=== PATIENT | female | born 1975 | race African-American/Black ===

== ENCOUNTER 2018-02-14 19:10 | Emergency (ER) | payer MEDICAID ==
[~2018-02-14] VITALS: Ht 175.3 cm; Wt 108.9 kg
[~2018-02-14 19:10] MED LIST: ABILIFY10 MG ORAL; BACTRIM DS TAB1 EAC1 ORAL; CEPHALEXIN500 MG ORAL; DEPAKOTE ER500 MG PO; IBUPROFEN600 MG ORAL; NORCO 5-325 TA1 EACH PO; PROVERA10 MG PO; QUETIAPINE FUMA25 MG PO
[2018-02-14 19:20] VITALS: BP 122/66
[2018-02-14] MEDS ORDERED: METFORMIN HCL1000 M1 ORAL (19:26)
[2018-02-14] MEDS ORDERED: METOPROLOL SUCC25 MG ORAL (19:26)
[2018-02-14] MEDS ORDERED: Isovue-300 100ml vial INJ PRN (19:45)
[2018-02-14] MEDS ORDERED: Gastrograffin 30ml ORAL PRN (19:45)
--- NOTE | 2018-02-14 19:57 | Emergency Room Report ---
History of Present Illness General Chief Complaint: Chest Pain Source: Patient, Medical Record (Bakari Hameed MD) Present Illness HPI Patient is a 42-year-old female brought in by self after increased chest discomfort since this morning. The patient reports having multiple episodes of vomiting after eating at [facility]. She had prior reported prior history of gastric sleeve surgery approximately one year and 3 months ago. The patient states that she had been having increased chest discomfort which was not changed with respiration or ambulation. Patient ported having vomited 3 times. She denied any episodes of diarrhea. Patient states that she been having some discolored stool. She denies any fever. (Bakari Hameed MD) Allergies: Coded Allergies: PENICILLINS (Verified Allergy, 08/25/12) Patient History Past Medical History: see triage record Past Surgical History: other - gastric sleeve surgery Last Menstrual Period: 01/17/18 Now: No Reviewed Nursing Documentation: PMH: Agreed; PSxH: Agreed (Bakari Hameed MD) Nursing Documentation-PMH Past Medical History: No History, Except For Hx Cardiac Problems: No Hx Asthma: Yes Hx Cancer: No Hx Gastrointestinal Problems: No Hx Seizures: Yes (Bakari Hameed MD) Review of Systems All Other Systems: negative except mentioned in HPI (Bakari Hameed MD) Physical Exam Vital Signs Date Time Temp Pulse Resp B/P (MAP) Pulse Ox O2 Delivery O2 Flow Rate FiO2 02/14/18 19:15 97.9 84 16 157/97 97 Room Air 97.9 Sp02 EP Interpretation: reviewed, normal General Appearance: normal inspection, well appearing, no apparent distress, alert, GCS 15, obese Head: atraumatic ENT: normal ENT inspection, hearing grossly normal, normal voice Neck: normal inspection, full range of motion, supple, no bony tend Respiratory: normal inspection, lungs clear, normal breath sounds, no respiratory distress, no retraction, no wheezing Cardiovascular #1: regular rate, rhythm, no edema Gastrointestinal: normal inspection, normal bowel sounds, non tender, soft, no guarding, no hernia Genitourinary: no CVA tenderness Musculoskeletal: normal inspection, back normal, normal range of motion Neurologic: normal inspection, alert, oriented x3, responsive, director of emergency nursing III-XII nml as tested, speech normal Psychiatric: normal inspection, judgement/insight normal, mood/affect normal Skin: normal inspection, normal color, no rash (Bakari Hameed MD) Medical Decision Making Diagnostic Impression: Primary Impression: Abdominal pain Qualified Codes: R10.13 - Epigastric pain Additional Impression: GERD (gastroesophageal reflux disease) ER Course Patient presented for abdominal pain. Differential diagnoses included ischemic bowel, appendicitis, perforated viscus, abdominal aortic aneurysm, inferior myocardial infarction, viral gastroenteritis, pulmonary embolism, pneumonia, aortic dissection, shingles, pneumothorax, aortic dissection, esophageal rupture , pericarditis. Because of complexity of patient's case laboratory testing and imaging studies were ordered. Labs Test 02/14/18 20:55 White Blood Count 12.0 K/UL (4.8-10.8) Red Blood Count 4.99 M/UL (4.20-5.40) Hemoglobin 15.9 G/DL (12.0-16.0) Hematocrit 45.7 % (37.0-47.0) Mean Corpuscular Volume 92 FL (80-99) Mean Corpuscular Hemoglobin 31.9 PG (27.0-31.0) Mean Corpuscular Hemoglobin Concent 34.8 G/DL (32.0-36.0) Red Cell Distribution Width 10.9 % (11.6-14.8) Platelet Count 276 K/UL (150-450) Mean Platelet Volume 7.1 FL (6.5-10.1) Neutrophils (%) (Auto) 57.5 % (45.0-75.0) Lymphocytes (%) (Auto) 32.9 % (20.0-45.0) Monocytes (%) (Auto) 6.4 % (1.0-10.0) Eosinophils (%) (Auto) 1.1 % (0.0-3.0) Basophils (%) (Auto) 2.1 % (0.0-2.0) Prothrombin Time 10.7 SEC (9.30-11.50) Prothromb Time International Ratio 1.0 (0.9-1.1) Activated Partial Thromboplast Time 30 SEC (23-33) Urine Color Pale yellow Urine Appearance Clear Urine pH 7 (4.5-8.0) Urine Specific [place] 1.005 (1.005-1.035) Urine Protein Negative (NEGATIVE) Urine Glucose (UA) Negative (NEGATIVE) Urine Ketones Negative (NEGATIVE) Urine Occult Blood 1+ (NEGATIVE) Urine Nitrite Negative (NEGATIVE) Urine Bilirubin Negative (NEGATIVE) Urine Urobilinogen 1 MG/DL (0.0-1.0) Urine Leukocyte Esterase Negative (NEGATIVE) Urine RBC 2-4 /HPF (0 - 2) Urine WBC 0-2 /HPF (0 - 2) Urine Squamous Epithelial Cells Few /LPF (NONE/OCC) Urine Bacteria Occasional /HPF (NONE) Sodium Level 139 MMOL/L (136-145) Potassium Level 3.6 MMOL/L (3.5-5.1) Chloride Level 103 MMOL/L (98-107) Carbon Dioxide Level 29 MMOL/L (21-32) Anion Gap 7 mmol/L (5-15) Blood Urea Nitrogen 13 mg/dL (7-18) Creatinine 1.0 MG/DL (0.55-1.30) Estimat Glomerular Filtration Rate > 60 mL/min (>60) Glucose Level 92 MG/DL (74-106) Calcium Level 9.2 MG/DL (8.5-10.1) Total Bilirubin 0.5 MG/DL (0.2-1.0) Aspartate Amino Transf (AST/SGOT) 20 U/L (15-37) Alanine Aminotransferase (ALT/SGPT) 18 U/L (12-78) Alkaline Phosphatase 60 U/L (46-116) Troponin I 0.000 ng/mL (0.000-0.056) Total Protein 8.2 G/DL (6.4-8.2) Albumin 3.7 G/DL (3.4-5.0) Globulin 4.5 g/dL Albumin/Globulin Ratio 0.8 (1.0-2.7) Lipase 158 U/L (73-393) (Bakari Hameed MD) ER Course Patient signout to me. Patient presents with epigastric pain. Patient had previous gastric sleeve. CT scan unremarkable. Patient had this frequently. We'll discharge home. No evidence of obstruction or leak. She may need GI follow-up for endoscopy. (DEBI OSEGUERA M.D.) EKG Diagnostic Results Rate: normal Rhythm: NSR ST Segments: no acute changes ASA given to the pt in ED: No (Bakari Hameed MD) Rhythm Strip Diag. Results EP Interpretation: yes Rhythm: NSR, no PVC's, no ectopy (Bakari Hameed MD) CT/MRI/US Diagnostic Results CT/MRI/US Diagnostic Results : Imaging Test Ordered: CT abdomen and pelvis Impression negative per radiologist (DEBI OSEGUERA M.D.) Last Vital Signs Date Time Temp Pulse Resp B/P (MAP) Pulse Ox O2 Delivery O2 Flow Rate FiO2 02/14/18 19:15 97.9 84 16 157/97 97 Room Air 97.9 Status: improved (Bakari Hameed MD) Disposition: HOME, SELF-CARE Condition: Stable Scripts Omeprazole Magnesium (PRILOSEC OTC) 20 Mg Tablet. 20 MG ORAL DAILY, #30 TAB Prov: Bakari Hameed MD 02/14/18 Patient Instructions: Heartburn Additional Instructions: follow-up your doctor in 7 days. You may benefit from a referral to see a GI doctor for endoscopy. Return if worse. Bakari Hameed MD February 14, 2018 19:57 DEBI OSEGUERA M.D. February 15, 2018 00:39
[2018-02-14 21:04] LABS: BASOPHILS % (AUTO) 2.1 % (0.0-2.0); EOSINOPHILS % (AUTO) 1.1 % (0.0-3.0); HEMATOCRIT 45.7 % (37.0-47.0); HEMOGLOBIN 15.9 G/DL (12.0-16.0); LYMPHOCYTES % (AUTO) 32.9 % (20.0-45.0); MEAN CORPUSCULAR VOLUME 92 FL (80-99); MONOCYTES % (AUTO) 6.4 % (1.0-10.0); NEUTROPHILS % (AUTO) 57.5 % (45.0-75.0); PLATELET COUNT 276 K/UL (150-450); RED BLOOD COUNT 4.99 M/UL (4.20-5.40); RED CELL DISTRIBUTION WIDTH 10.9 % (11.6-14.8)
[2018-02-14 21:07] LABS: APPEARANCE,URINE CLEAR; BILIRUBIN, URINE NEGATIVE (NEGATIVE); COLOR,URINE PALE YELLOW; GLUCOSE, URINE (UA) NEGATIVE (NEGATIVE); KETONES,URINE NEGATIVE (NEGATIVE); LEUKOCYTE ESTERASE ,URINE NEGATIVE (NEGATIVE); NITRITE,URINE NEGATIVE (NEGATIVE); PH,URINE 7 (4.5-8.0); PROTEIN,URINE NEGATIVE (NEGATIVE); UROBILINOGEN,URINE 1 MG/DL (0.0-1.0)
[2018-02-14 21:21] LABS: ANION GAP 7 mmol/L (5-15); BLOOD UREA NITROGEN 13 mg/dL (7-18); CALCIUM 9.2 MG/DL (8.5-10.1); CARBON DIOXIDE 29 MMOL/L (21-32); CHLORIDE 103 MMOL/L (98-107); POTASSIUM 3.6 MMOL/L (3.5-5.1); SODIUM 139 MMOL/L (136-145)
[2018-02-14 21:25] LABS: ALANINE AMINOTRANSFERASE 18 U/L (12-78); ALBUMIN 3.7 G/DL (3.4-5.0); ALBUMIN/GLOBULIN RATIO 0.8 (1.0-2.7); ALKALINE PHOSPHATASE 60 U/L (46-116); ASPARTATE AMINO TRANSFERASE 20 U/L (15-37); BILIRUBIN,TOTAL 0.5 MG/DL (0.2-1.0)
[2018-02-14 21:30] VITALS: BP 120/84
[2018-02-14] MEDS ORDERED: PRILOSEC OTC20 MG ORAL (22:55)
[2018-02-14 23:28] VITALS: BP 128/78
[2018-02-15 00:45] VITALS: BP 124/80
--- NOTE | 2018-02-15 10:17 | Diagnostic Imaging Report ---
Indication: Abdominal pain Technique: Continuous helical transaxial imaging of the abdomen and pelvis was obtained from the lung bases to the pubic symphysis during intravenous contrast administration. Coronal 2-D reformats were also obtained. Study obtained in a Siemens sensation [address] Automatic Exposure Control was utilized. Total Dose length Product (DLP): 1141.[address] Dose Index Volume (CTDIvol): 19.51 mGy Comparison: None Findings: There is a small hiatal hernia. Gastric bypass noted. No oral contrast given on this exam. No evidence of bowel obstruction. Solid organs appear grossly unremarkable. There is no hydronephrosis. Gallbladder is unremarkable. There is a 5 cm complex mass versus hematoma in the central part of the uterus with area of the lower uterine segment/cervix. Suggest correlation with ultrasound. IMPRESSION: Abnormal 5 cm slightly hyperdense focus noted centrally in the upper cervix/lower uterine segment. This could be blood or hematoma. Mass is not excluded. Please correlate clinically. Ultrasound may be of benefit. Status post gastric bypass. Normal appendix. [facility] has communicated the preliminary results to the Emergency Department. Their findings are largely concordant with this report. The CT scanner at [facility] is accredited by the [employer] and the scans are performed using dose optimization techniques as appropriate to a performed exam including Automatic Exposure control.
--- NOTE | 2018-02-15 10:44 | Diagnostic Imaging Report ---
Indication: Dyspnea Comparison: None A single view chest radiograph was obtained. Findings: Cardiomediastinal appearance is within normal limits for age. Pulmonary vascularity is appropriate. The diaphragmatic contour is smooth and costophrenic angles are sharp. No pleural effusions are identified. The bones are unremarkable. Impression: No acute findings
--- NOTE | 2018-02-15 13:50 | Cardiology Report ---
APPROVED REPORT EKG Measurement Heart [id number] Normal sinus rhythm Incomplete right bundle branch block Borderline ECG
== END 2018-02-15 00:50 | disposition home or self-care (01) ==
LOC: EMR 19:44
DX: K21.9 Gastro-esophageal reflux disease without esophagitis (principal); J45.909 Unspecified asthma, uncomplicated; R10.9 Unspecified abdominal pain; Z98.84 Bariatric surgery status; Z88.0 Allergy status to penicillin
CPT/HCPCS: 36415; 71045; 74177; 80053; 81003; 81025; 83690; 84484; 85025; 85610; 85730; 86850; 86900; 86901; 93005; 99284; Q9967

== ENCOUNTER 2018-05-13 10:23 | Emergency (ER) | payer MEDICAID ==
[~2018-05-13] VITALS: Ht 175.3 cm; Wt 116.1 kg
[~2018-05-13 10:23] MED LIST changes: +METFORMIN HCL1000 M1 ORAL; +METOPROLOL SUCC25 MG ORAL; +PRILOSEC OTC20 MG ORAL
[2018-05-13 11:16] VITALS: BP 129/76
[2018-05-13 11:28] LABS: BASOPHILS % (AUTO) 1.2 % (0.0-2.0); EOSINOPHILS % (AUTO) 1.7 % (0.0-3.0); HEMATOCRIT 39.1 % (37.0-47.0); LYMPHOCYTES % (AUTO) 35.2 % (20.0-45.0); MEAN CORPUSCULAR VOLUME 93 FL (80-99); MONOCYTES % (AUTO) 7.7 % (1.0-10.0); NEUTROPHILS % (AUTO) 54.2 % (45.0-75.0); PLATELET COUNT 226 K/UL (150-450); RED BLOOD COUNT 4.22 M/UL (4.20-5.40); RED CELL DISTRIBUTION WIDTH 11.3 % (11.6-14.8); WHITE BLOOD COUNT 7.5 K/UL (4.8-10.8)
--- NOTE | 2018-05-13 11:49 | Emergency Room Report ---
History of Present Illness General Chief Complaint: Chest Pain Source: Patient Present Illness HPI This patient c/o sharp sub-sternal cp mild-mod severity lasts minutes at a time. On/off today. She tried inhaler without improvement. Nonexertional. While driving. She did come to ED for same in past and she states something that sounds like she was recommended to have an outpt. angio. I do not see that documented in our ED visit and patient was not admitted here. PMH: bipolar, GERD Meds: Abilify, Metformin, Atenolol, Ventolin, Depakote, med for GERD, aspirin CRF: dm, htn, ?lipids Allergies: Coded Allergies: PENICILLINS (Verified Allergy, 08/25/12) Patient History Now: No Nursing Documentation-PMH Past Medical History: No History, Except For Hx Cardiac Problems: No Hx Hypertension: Yes Hx Asthma: Yes Hx Cancer: No Hx Gastrointestinal Problems: No Hx Seizures: Yes Review of Systems Constitutional: Reports: no symptoms Eye: Reports: no symptoms ENT: Reports: no symptoms Respiratory: Reports: no symptoms Cardiovascular: Reports: no symptoms Gastrointestinal: Reports: no symptoms Genitourinary: Reports: no symptoms Musculoskeletal: Reports: no symptoms Skin: Reports: no symptoms Psychiatric: Reports: no symptoms Neurological: Reports: no symptoms Endocrine: Reports: no symptoms Hematologic/Lymphatic: Reports: no symptoms Allergic: Reports: no symptoms Physical Exam Vital Signs Date Time Temp Pulse Resp B/P (MAP) Pulse Ox O2 Delivery O2 Flow Rate FiO2 05/13/18 10:28 98.3 75 20 129/76 98 Room Air 98.2 Sp02 EP Interpretation: reviewed, normal General Appearance: normal inspection, well appearing, no apparent distress, alert, GCS 15, non-toxic, other - overweight Head: normocephalic, atraumatic Eyes: bilateral eye normal inspection, bilateral eye PERRL, bilateral eye EOMI ENT: normal ENT inspection, hearing grossly normal, normal pharynx, no angioedema, normal voice, moist mucus membranes Neck: normal inspection, full range of motion, supple, no meningismus, no bony tend Respiratory: normal inspection, lungs clear, normal breath sounds, no rhonchi, no respiratory distress, no retraction, no accessory muscle use, no wheezing Cardiovascular #1: normal inspection, regular rate, rhythm, no edema Gastrointestinal: normal inspection, normal bowel sounds, non tender, soft, no mass, non-distended Musculoskeletal: gait/station normal, normal range of motion Neurologic: normal inspection, alert, oriented x3, responsive, motor strength/ tone normal Psychiatric: normal inspection, judgement/insight normal, memory normal Suicide Risk Assessment: Suicidal Ideation: No Had intent to initiate attempt: No Pt's plan for suicide attempt: No Has means to complete attempt: No Skin: normal inspection, normal color, no rash, warm/dry Medical Decision Making Diagnostic Impression: Primary Impression: Chest pain ER Course EMERGENCY DEPARTMENT COURSE / MEDICAL DECISION MAKING: The patient was placed on a cardiac nurse specialist, continuous pulse oximetry, and tests as ordered. The patient was treated with aspirin per 911. My differential diagnosis included: ACS, myocardial infarction, angina, pericarditis, aortic dissection, pleurisy, pleural effusion, pneumothorax, pneumonia, PE, costochondritis, PUD, gastritis, GERD, muscular. I observed the patient for a period of time and the patient felt better. On reassessment, the patient's history, vital signs, exam and studies were all reviewed. I will re-evaluate for further workup and recommendation based on the diagnostic testing results and how the patient responds to treatment. My initial impression was: Atypical chest pain. My final impression was the same. Possibly psych related, possibly GERD. I am not worried about PE, since the patient was not complaining of SOB, and did not have hypoxia, hemoptysis, tachycardia or syncope. Chest x-ray was negative with no signs of acute disease. She was advised to arrive back to the ED for new or worsening symptoms. This patient presents with signs and symptoms potentially concerning for coronary ischemia. While it is not possible to be 100% accurate about the etiology of the patient's chest pain at this time (after an ED evaluation.) The patient's CHRISTY Score is: 0. The patient's HEART Score is: 2. I told the patient that the risk of ACS/ischemia is not zero but is very unlikely. The patient confirmed heard my advice and agreed to see their own physician within two days. In addition the name of the on-call vegetable cutter is provided in the discharge papers. Pt. advised to return for further episodes especially if he were to develop exertional chest pain. CHRISTY: age 65 years or older 0 at least 3 risk factors for coronary artery disease 0 prior coronary stenosis of 50% or more 0 ST-segment deviation on ECG at presentation 0 at least two anginal events in prior 24 hours 0 use of aspirin in the prior seven days 1 elevated serum cardiac biomarkers 0 HEART: (0-2 for five variables) History 0 EKG (ST depr = 1mm) 0 Age (45-65) 0 Risk Factors (1-2) 1 Troponin (1-2x) 0 The patient is a good candidate for outpatient care and will be discharged with instructions to follow up with their PMD in 1-2 days. I explained the findings and plan to the patient, who expressed verbal understanding and agreed with plan for discharge and follow up. The patient was given after care instructions and welcomed to return to the ED for any new or worsening symptoms. The patient was stable at the time of discharge. The patient's blood pressure was elevated >120/80 but appears stable without evidence of hypertensive emergency or urgency. The patient was counseled about the risks of hypertension and urged to pursue outpatient monitoring and therapy within a week with their primary care physician or the list given in the community resources book. EKG Diagnostic Results Rhythm: NSR ST Segments: no acute changes Other Impression NSR 65, iRBBB, no signs ischemia, normal intervals Rhythm Strip Diag. Results Rhythm Strip Time: 11:52 EP Interpretation: yes Rate: 67 Rhythm: NSR Chest X-Ray Diagnostic Results Chest X-Ray Diagnostic Results : Chest X-Ray Ordered: Yes # of Views/Limited/Complete: 1 View Indication: Chest Pain EP Interpretation: Yes Interpretation: no consolidation, no effusion, no pneumothorax, no acute cardiopulmonary disease Last Vital Signs Date Time Temp Pulse Resp B/P (MAP) Pulse Ox O2 Delivery O2 Flow Rate FiO2 05/13/18 11:16 98.2 75 20 129/76 98 Room Air 98.2 Referrals: NON PHYSICIAN (PCP) Portillo Frey M.D. May 13, 2018 11:49
[2018-05-13 11:55] LABS: ANION GAP 6 mmol/L (5-15); BLOOD UREA NITROGEN 10 mg/dL (7-18); CALCIUM 8.8 MG/DL (8.5-10.1); CARBON DIOXIDE 30 MMOL/L (21-32); CHLORIDE 107 MMOL/L (98-107); CREATININE 0.8 MG/DL (0.55-1.30); POTASSIUM 3.8 MMOL/L (3.5-5.1); SODIUM 143 MMOL/L (136-145)
[2018-05-13 12:05] LABS: ALANINE AMINOTRANSFERASE 13 U/L (12-78); ALBUMIN 3.1 G/DL (3.4-5.0); ALBUMIN/GLOBULIN RATIO 0.8 (1.0-2.7); ALKALINE PHOSPHATASE 54 U/L (46-116); ASPARTATE AMINO TRANSFERASE 16 U/L (15-37); BILIRUBIN,TOTAL 0.3 MG/DL (0.2-1.0)
--- NOTE | 2018-05-13 12:30 | Diagnostic Imaging Report ---
Indication: Chest pain Technique: One view of the chest Comparison: 02/14/2018 Findings: Inspiration is suboptimal. Lungs and pleural spaces are clear. The heart size is upper limits normal. No significant interim change Impression: No acute process
[2018-05-13 12:59] VITALS: BP 129/76
== END 2018-05-13 13:01 | disposition home or self-care (01) ==
LOC: EMR 11:14
DX: R07.9 Chest pain, unspecified (principal); K21.9 Gastro-esophageal reflux disease without esophagitis; I10 Essential (primary) hypertension; J45.909 Unspecified asthma, uncomplicated; Z88.0 Allergy status to penicillin
CPT/HCPCS: 36415; 71045; 80053; 80164; 81025; 83880; 84484; 85025; 85610; 93005; 99283

== ENCOUNTER 2018-07-07 05:47 | Emergency (ER) | payer MEDICAID ==
[~2018-07-07] VITALS: Ht 177.8 cm; Wt 113.4 kg
--- NOTE | 2018-07-07 05:59 | Emergency Room Report ---
History of Present Illness General Chief Complaint: To Be Triaged Source: Patient Present Illness HPI Is a 43-year-old female with history of diabetes blood pressure. She presents with chief complaint of chest pain. Onset yesterday. She also complaining of neck pain and head pain. 3 days ago she just fell asleep and hit her head against the table. Tonight she dropped off family at a supermarket and then fell asleep in the driveway for 8 hours. She says she had a lot of stress and not sleeping much. Pain is sharp in her chest area. No radiation. No nausea no vomiting. No fever chills but no diaphoresis. Has not take anything for this. Pain is 7 out of 10. Been ongoing for over 24 hours. She had an echocardiogram was unremarkable per patient. No stress test yet. Allergies: Coded Allergies: PENICILLINS (Verified Allergy, Unknown, 07/07/18) Patient History Past Medical History: see triage record, old chart reviewed, DM, HTN Past Surgical History: other Pertinent Family History: [place] Social History: Reports: smoking Now: No Immunizations: other Reviewed Nursing Documentation: PMH: Agreed; PSxH: Agreed Nursing Documentation-PMH Hx Cardiac Problems: No Hx Hypertension: Yes Hx Asthma: Yes Hx Cancer: No Hx Gastrointestinal Problems: No Hx Seizures: Yes Review of Systems Eye: Denies: eye pain, blurred vision ENT: Denies: ear pain, nose congestion, throat swelling Respiratory: Denies: cough, shortness of breath Cardiovascular: Reports: chest pain; Denies: palpitations Gastrointestinal: Denies: abdominal pain, diarrhea, nausea, vomiting Musculoskeletal: Denies: back pain, joint pain Skin: Denies: rash Neurological: Reports: headache; Denies: numbness Endocrine: Denies: increased thirst, increased urine Hematologic/Lymphatic: Denies: easy bruising All Other Systems: negative except mentioned in HPI Physical Exam Sp02 EP Interpretation: reviewed, normal General Appearance: well appearing, no apparent distress, alert Head: normocephalic, atraumatic Eyes: bilateral eye PERRL, bilateral eye EOMI ENT: hearing grossly normal, normal pharynx Neck: full range of motion, supple, no meningismus Respiratory: chest non-tender, lungs clear, normal breath sounds Cardiovascular #1: regular rate, rhythm, no murmur Gastrointestinal: normal bowel sounds, non tender, no mass, no organomegaly, no bruit, non-distended Musculoskeletal: back normal, gait/station normal, normal range of motion Psychiatric: mood/affect normal Skin: warm/dry Medical Decision Making Diagnostic Impression: Primary Impression: Chest pain Qualified Codes: R07.9 - Chest pain, unspecified Additional Impression: Head injury, acute Qualified Codes: S09.90XA - Unspecified injury of head, initial encounter ER Course Patient presents with chest pain. No evidence of ACS, PE, dissection to name a few. Most likely anxiety related. She does have risk factor with her obesity, diabetes, high blood pressure, and family history. Labs ordered. I will sign this patient out to oncoming doctor for final disposition. EKG Diagnostic Results Rate: normal Rhythm: NSR ST Segments: no acute changes ASA given to the pt in ED: Yes Rhythm Strip Diag. Results Rhythm Strip Time: 06:14 EP Interpretation: yes Rate: 60 Rhythm: NSR, no PVC's, no ectopy Status: improved Disposition: HOME, SELF-CARE Richard Chaves MD Jul 07, 2018 05:59
[2018-07-07] MEDS ORDERED: Ketorolac 30mg Inj IV ONE (06:00)
[2018-07-07] MEDS ORDERED: Aspirin Baby 81mg ORAL ONE (06:00)
[2018-07-07 06:30] VITALS: BP 134/81
[2018-07-07 06:54] LABS: ANION GAP 5 mmol/L (5-15); BLOOD UREA NITROGEN 11 mg/dL (7-18); CALCIUM 8.9 MG/DL (8.5-10.1); CARBON DIOXIDE 29 MMOL/L (21-32); CHLORIDE 106 MMOL/L (98-107); CREATININE 0.8 MG/DL (0.55-1.30); POTASSIUM 3.9 MMOL/L (3.5-5.1); SODIUM 140 MMOL/L (136-145)
[2018-07-07 06:56] LABS: BASOPHILS % (AUTO) 1.4 % (0.0-2.0); EOSINOPHILS % (AUTO) 1.3 % (0.0-3.0); HEMATOCRIT 45.7 % (37.0-47.0); HEMOGLOBIN 15.1 G/DL (12.0-16.0); LYMPHOCYTES % (AUTO) 28.9 % (20.0-45.0); MEAN CORPUSCULAR VOLUME 92 FL (80-99); MONOCYTES % (AUTO) 7.9 % (1.0-10.0); NEUTROPHILS % (AUTO) 60.4 % (45.0-75.0); PLATELET COUNT 245 K/UL (150-450); RED BLOOD COUNT 4.98 M/UL (4.20-5.40); RED CELL DISTRIBUTION WIDTH 11.1 % (11.6-14.8); WHITE BLOOD COUNT 8.5 K/UL (4.8-10.8)
[2018-07-07 07:06] LABS: APPEARANCE,URINE SLIGHTLY CLOUDY; BILIRUBIN, URINE NEGATIVE (NEGATIVE); COLOR,URINE PALE YELLOW; GLUCOSE, URINE (UA) NEGATIVE (NEGATIVE); KETONES,URINE NEGATIVE (NEGATIVE); LEUKOCYTE ESTERASE ,URINE 1+ (NEGATIVE); NITRITE,URINE NEGATIVE (NEGATIVE); PH,URINE 5 (4.5-8.0); PROTEIN,URINE 4+ (NEGATIVE); UROBILINOGEN,URINE NORMAL MG/DL (0.0-1.0)
[2018-07-07 07:08] VITALS: BP 131/86
[2018-07-07 07:10] LABS: CKMB 0.8 NG/ML (0.0-3.6); CREATINE KINASE 155 U/L (26-308)
--- NOTE | 2018-07-07 07:57 | Emergency Room Report ---
Physical Exam Vital Signs Date Time Temp Pulse Resp B/P (MAP) Pulse Ox O2 Delivery O2 Flow Rate FiO2 07/07/18 06:00 97.0 61 23 131/79 100 Room Air 97.0 Medical Decision Making Diagnostic Impression: Primary Impression: Chest pain Qualified Codes: R07.9 - Chest pain, unspecified Additional Impression: Head injury, acute Qualified Codes: S09.90XA - Unspecified injury of head, initial encounter ER Course Hospital Course 43 yo F presents with chest pain, head injury Clinical course Patient initially seen and evaluated by Dr. Chaves; please see his note for full history and physical labs reviewed- no leukocytosis, Hb/Hct stable, electrolytes ok, troponins negative CT Brain - unremarkable Chest x-ray- no acute process EKG - NSR, twave inversions in lateral leads Discussed findings with patient. Patient is working night shifts and is likely sleep deprived which likely caused her head injury. Patient also states she feels anxious at times. Seen here previously for similar episodes of chest pain which appeared like anxiety as well. However patient does have cardiac risk factors. I do recommend the patient see her PMD for further outpatient workup I. I feel this is a highly complex case requiring extensive working including EKG/Rhythm strip, Xray/CT/US, Blood/urine lab work, repeat exams while in ED, and administration of strong opiates/narcotics for pain control, admission to hospital or close patient follow up. Diagnosis - chest pain, head injury acute Stable and discharged to home. Followup with PMD. Return to ED if symptoms recur or worsen Labs Test 07/07/18 06:30 07/07/18 06:45 White Blood Count 8.5 K/UL (4.8-10.8) Red Blood Count 4.98 M/UL (4.20-5.40) Hemoglobin 15.1 G/DL (12.0-16.0) Hematocrit 45.7 % (37.0-47.0) Mean Corpuscular Volume 92 FL (80-99) Mean Corpuscular Hemoglobin 30.4 PG (27.0-31.0) Mean Corpuscular Hemoglobin Concent 33.1 G/DL (32.0-36.0) Red Cell Distribution Width 11.1 % (11.6-14.8) Platelet Count 245 K/UL (150-450) Mean Platelet Volume 8.1 FL (6.5-10.1) Neutrophils (%) (Auto) 60.4 % (45.0-75.0) Lymphocytes (%) (Auto) 28.9 % (20.0-45.0) Monocytes (%) (Auto) 7.9 % (1.0-10.0) Eosinophils (%) (Auto) 1.3 % (0.0-3.0) Basophils (%) (Auto) 1.4 % (0.0-2.0) Sodium Level 140 MMOL/L (136-145) Potassium Level 3.9 MMOL/L (3.5-5.1) Chloride Level 106 MMOL/L (98-107) Carbon Dioxide Level 29 MMOL/L (21-32) Anion Gap 5 mmol/L (5-15) Blood Urea Nitrogen 11 mg/dL (7-18) Creatinine 0.8 MG/DL (0.55-1.30) Estimat Glomerular Filtration Rate > 60 mL/min (>60) Glucose Level 105 MG/DL (74-106) Calcium Level 8.9 MG/DL (8.5-10.1) Total Creatine Kinase 155 U/L (26-308) Creatine Kinase MB 0.8 NG/ML (0.0-3.6) Creatine Kinase MB Relative Index 0.5 Troponin I 0.000 ng/mL (0.000-0.056) Urine Color Pale yellow Urine Appearance Slightly cloudy Urine pH 5 (4.5-8.0) Urine Specific [place] 1.020 (1.005-1.035) Urine Protein 4+ (NEGATIVE) Urine Glucose (UA) Negative (NEGATIVE) Urine Ketones Negative (NEGATIVE) Urine Blood 2+ (NEGATIVE) Urine Nitrite Negative (NEGATIVE) Urine Bilirubin Negative (NEGATIVE) Urine Urobilinogen Normal MG/DL (0.0-1.0) Urine Leukocyte Esterase 1+ (NEGATIVE) Urine RBC 2-4 /HPF (0 - 2) Urine WBC 0-2 /HPF (0 - 2) Urine Squamous Epithelial Cells Moderate /LPF (NONE/OCC) Urine Amorphous Sediment Few /LPF (NONE) Urine Bacteria Few /HPF (NONE) Urine HCG, Qualitative Negative (NEGATIVE) Urine Opiates Screen Negative (NEGATIVE) Urine Barbiturates Screen Negative (NEGATIVE) Phencyclidine (PCP) Screen Negative (NEGATIVE) Urine Amphetamines Screen Negative (NEGATIVE) Urine Benzodiazepines Screen Negative (NEGATIVE) Urine Cocaine Screen Negative (NEGATIVE) Urine Marijuana (THC) Screen Negative (NEGATIVE) EKG Diagnostic Results Rate: normal Rhythm: NSR ST Segments: other - twave inversions in lateral leads ASA given to the pt in ED: No Rhythm Strip Diag. Results EP Interpretation: yes Rhythm: NSR, no PVC's, no ectopy Chest X-Ray Diagnostic Results Chest X-Ray Diagnostic Results : Chest X-Ray Ordered: Yes # of Views/Limited/Complete: 1 View Indication: Chest Pain EP Interpretation: Yes Interpretation: no consolidation, no pneumothorax, other - cardiomegaly Impression: No acute disease Electronically Signed by: Electronically signed by Jalil Zaldivar MD CT/MRI/US Diagnostic Results CT/MRI/US Diagnostic Results : Imaging Test Ordered: CT Head Impression no acute process Last Vital Signs Date Time Temp Pulse Resp B/P (MAP) Pulse Ox O2 Delivery O2 Flow Rate FiO2 07/07/18 07:08 52 19 131/86 100 Room Air 07/07/18 06:30 97.2 97.2 Status: improved Disposition: HOME, SELF-CARE Condition: Stable Referrals: NON PHYSICIAN (PCP) Jalil Zaldivar MD Jul 07, 2018 07:57
[2018-07-07 08:20] VITALS: BP 132/86
--- NOTE | 2018-07-07 11:33 | Diagnostic Imaging Report ---
Indication: Headache Technique: Contiguous 5 mm thick transaxial imaging of the head obtained in a Siemens Sensation [address] scanner. Soft tissue and bone windows generated. Automatic Exposure Control was utilized. Total Dose length Product (DLP): [address] Dose Index Volume (CTDIvol): 70.38 mGy Comparison: none Findings: There is mild prominence of the ventricles, basal cisterns, and cerebral sulci consistent with atrophy. Mild, nonspecific, white matter hypoattenuation is noted throughout the brain consistent with chronic small vessel disease. There is no midline shift, edema, acute hemorrhage, mass effect, or abnormal extra-axial fluid collections. Bones and extra osseous soft tissues are unremarkable. Impression: No acute intracranial bleed, mass effect or edema. Mild atrophy of the brain. Nonspecific white matter hypoattenuation probably due to chronic small vessel disease. Artifact limiting evaluation. [facility] has communicated the preliminary results to the Emergency Department. Their findings are largely concordant with this report. The CT scanner at [facility] is accredited by the [employer] and the scans are performed using dose optimization techniques as appropriate to a performed exam including Automatic Exposure control.
--- NOTE | 2018-07-07 12:00 | Diagnostic Imaging Report ---
Indication: Chest pain Comparison: 05/13/2018 A single view chest radiograph was obtained. Findings: Cardiomediastinal appearance is within normal limits for age. The lungs are clear. Pulmonary vascularity is appropriate. The diaphragmatic contour is smooth and costophrenic angles are sharp. No pleural effusions are identified. The bones are unremarkable. Impression: No acute findings
--- NOTE | 2018-07-07 15:09 | Cardiology Report ---
APPROVED REPORT EKG Measurement Heart [id number] VT [id number] Normal sinus rhythm Septal infarct, age undetermined Abnormal ECG
== END 2018-07-07 08:15 | disposition home or self-care (01) ==
LOC: EMR 06:00
DX: R07.9 Chest pain, unspecified (principal); S09.8XXA Other specified injuries of head, initial encounter; W19.XXXA Unspecified fall, initial encounter; Y92.9 Unspecified place or not applicable; J45.909 Unspecified asthma, uncomplicated; I10 Essential (primary) hypertension; Z88.0 Allergy status to penicillin
CPT/HCPCS: 36415; 70450; 71045; 80048; 80307; 81003; 81025; 82550; 82553; 84484; 85025; 93005; 96374; 99284; J1885

== ENCOUNTER 2018-07-27 03:06 | Emergency (ER) | payer MEDICAID ==
[~2018-07-27] VITALS: Ht 175.3 cm; Wt 122.9 kg
--- NOTE | 2018-07-27 03:47 | Emergency Room Report ---
History of Present Illness General Chief Complaint: Headache Source: Patient Present Illness HPI Is a 43-year-old female with history of bipolar and high blood pressure. She presents with multiple complaints. She says she's having throbbing headache. Also said she's fell asleep/passing out on the car. Also with chest pressure. Also with abdominal pain and diarrhea. This is a chronic issue been ongoing for several weeks. She was here in early June. Workup was negative. She also complaining of pedal edema. Saw her doctor and still waiting approval for Holter monitor. Denies any fever chills but denies any nausea vomiting. Nothing made it better. Nothing made it worse. Allergies: Coded Allergies: PENICILLINS (Verified Allergy, Unknown, 07/07/18) Patient History Past Medical History: see triage record, old chart reviewed, HTN, psych hx Past Surgical History: other Pertinent Family History: none Social History: Denies: smoking Last Menstrual Period: 07/12/18 Now: No Immunizations: other Reviewed Nursing Documentation: PMH: Agreed; PSxH: Agreed Nursing Documentation-PMH Past Medical History: No History, Except For Hx Cardiac Problems: No Hx Hypertension: Yes - metoprolol Hx Asthma: Yes - albuterol Hx Diabetes: Yes Hx Cancer: No Hx Gastrointestinal Problems: Yes - GERD, omperazole History Of Psychiatric Problem: Yes - depression, takes abilify Hx Seizures: Yes - deppakote Review of Systems Eye: Denies: eye pain, blurred vision ENT: Denies: ear pain, nose congestion, throat swelling Respiratory: Denies: cough, shortness of breath Cardiovascular: Reports: chest pain; Denies: palpitations Gastrointestinal: Reports: abdominal pain, diarrhea; Denies: nausea, vomiting Musculoskeletal: Denies: back pain, joint pain Skin: Denies: rash Neurological: Denies: headache, numbness Endocrine: Denies: increased thirst, increased urine Hematologic/Lymphatic: Denies: easy bruising All Other Systems: negative except mentioned in HPI Physical Exam Vital Signs Date Time Temp Pulse Resp B/P (MAP) Pulse Ox O2 Delivery O2 Flow Rate FiO2 07/27/18 03:09 98.2 76 18 148/85 95 Room Air vitals with hypertension Sp02 EP Interpretation: reviewed, normal General Appearance: well appearing, no apparent distress, alert Head: normocephalic, atraumatic Eyes: bilateral eye PERRL, bilateral eye EOMI ENT: hearing grossly normal, normal pharynx Neck: full range of motion, supple, no meningismus Respiratory: chest non-tender, lungs clear, normal breath sounds Cardiovascular #1: regular rate, rhythm, no murmur Gastrointestinal: normal bowel sounds, non tender, no mass, no organomegaly, no bruit, non-distended Musculoskeletal: back normal, gait/station normal, normal range of motion, swelling - One to 2+ pitting edema Neurologic: alert, oriented x3 Psychiatric: mood/affect normal Skin: warm/dry Medical Decision Making Diagnostic Impression: Primary Impression: Headache Qualified Codes: G44.209 - Tension-type headache, unspecified, not intractable Additional Impression: Pedal edema ER Course Patient with multiple complaints. I suspect he may be some depression with somatization. No evidence of ACS, PE, dissection, CHF to name a few. Chest x- ray clear. Discharge home. Chest X-Ray Diagnostic Results Chest X-Ray Diagnostic Results : Chest X-Ray Ordered: Yes # of Views/Limited/Complete: 1 View Indication: Shortness of Breath EP Interpretation: Yes Interpretation: no consolidation, no effusion, no pneumothorax, no acute cardiopulmonary disease Impression: No acute disease Electronically Signed by: Richard Chaves MD Last Vital Signs Date Time Temp Pulse Resp B/P (MAP) Pulse Ox O2 Delivery O2 Flow Rate FiO2 07/27/18 03:09 98.2 76 18 148/85 95 Room Air Status: improved Disposition: HOME, SELF-CARE Condition: Stable Scripts Furosemide* (LASIX*) 20 Mg Tablet 20 MG ORAL DAILY, #14 TAB Prov: Richard Chaevs MD 07/27/18 Patient Instructions: General Headache Without Cause Additional Instructions: Follow-up with your doctor in 7 days. You may need a Holter monitor. Return if worse. Richard Chaves MD Jul 27, 2018 03:47
[2018-07-27] MEDS ORDERED: FUROSEMIDE20 M1 ORAL (04:29)
[2018-07-27 04:40] VITALS: BP 118/72
[2018-07-27 05:00] VITALS: BP 116/73
--- NOTE | 2018-07-27 11:40 | Diagnostic Imaging Report ---
Indication: Chest pain Comparison: 07/07/2018 A single view chest radiograph was obtained. Findings: Cardiomediastinal appearance is within normal limits for age. The lungs are clear. Pulmonary vascularity is appropriate. The diaphragmatic contour is smooth and costophrenic angles are sharp. No pleural effusions are identified. The bones are unremarkable. Impression: No acute findings
== END 2018-07-27 05:00 | disposition home or self-care (01) ==
LOC: EMR 03:40
DX: R51 Headache (principal); R60.0 Localized edema; F31.9 Bipolar disorder, unspecified; Z88.0 Allergy status to penicillin; I10 Essential (primary) hypertension; J45.909 Unspecified asthma, uncomplicated; K21.9 Gastro-esophageal reflux disease without esophagitis; F32.9 Major depressive disorder, single episode, unspecified
CPT/HCPCS: 71045; 99283

== ENCOUNTER 2018-12-11 10:55 | Emergency (ER) | payer MEDICAID ==
[~2018-12-11] VITALS: Ht 175.3 cm; Wt 111.1 kg
[~2018-12-11 10:55] MED LIST changes: +FUROSEMIDE20 M1 ORAL
--- NOTE | 2018-12-11 11:11 | NUR ---
ED Nurse Note: PT WALKED IN TO ER TODAY FROM HOME. AOX4. PT C/O LOWER ABDOMINAL PAIN, 9/10 RADIATING TO BILATERAL LOWER BACK, NAUSEA, MULTIPLE EPISODES OF VOMITING AND DIARRHEA X 3 DAYS AGO. LAST BM X LAST NIGHT WHICH PT STATES WAS LIQUID. ACTIVE BOWEL SOUNDS IN ALL QUADRANTS. ABDOMEN NONDISTENDED AND NONTENDER TO PALPATION.
[2018-12-11 11:12] VITALS: BP 123/80
[2018-12-11] MEDS ORDERED: Morphine Sulfate 4mg/ml Inj (IV USE ONLY) IVP ONE (11:15)
--- NOTE | 2018-12-11 11:36 | Emergency Room Report ---
History of Present Illness General Chief Complaint: Abdominal Pain Source: Patient Present Illness HPI 43-year-old female with history of hypertension and sleeve gastrectomy 2 years ago, presents with almost 1 week of bowel pain, intermittent nausea and vomiting , as well as loose stools. She reports pain is diffuse, sometimes as low back pain also reports some mild right scapular pain, denies fevers, cough, shortness of breath. She feels like her right kidney may be the problem. She reports she's not try any medications for her symptoms. Allergies: Coded Allergies: PENICILLINS (Verified Allergy, Unknown, 07/07/18) Patient History Past Medical History: see triage record Last Menstrual Period: 10/2018 Now: No Reviewed Nursing Documentation: PMH: Agreed; PSxH: Agreed Nursing Documentation-PMH Past Medical History: No History, Except For Hx Cardiac Problems: No Hx Hypertension: Yes Hx Asthma: Yes Hx Diabetes: Yes Hx Cancer: No Hx Gastrointestinal Problems: Yes - GERD Hx Seizures: Yes Review of Systems All Other Systems: negative except mentioned in HPI Physical Exam Vital Signs Date Time Temp Pulse Resp B/P (MAP) Pulse Ox O2 Delivery O2 Flow Rate FiO2 12/11/18 10:58 98.2 72 20 124/83 98 Room Air Sp02 EP Interpretation: reviewed, normal General Appearance: no apparent distress, alert, non-toxic Head: normocephalic Eyes: bilateral eye normal inspection, bilateral eye PERRL, bilateral eye EOMI ENT: normal ENT inspection, hearing grossly normal, normal pharynx, no angioedema, normal voice, dry mucus membranes Neck: normal inspection, full range of motion, supple, supple/symm/no masses Respiratory: chest non-tender, lungs clear, normal breath sounds, chest symmetrical, palpation of chest normal Cardiovascular #1: normal peripheral pulses, regular rate, rhythm Cardiovascular #2: 2+ radial (R), 2+ radial (L), 2+ dorsalis pedis (R), 2+ dorsalis pedis (L) Gastrointestinal: normal inspection, soft, no mass, no guarding, no rebound, tenderness - diffusely but no focal tenderness Rectal: deferred Genitourinary: normal inspection, no CVA tenderness Musculoskeletal: back normal, gait/station normal, normal range of motion, non- tender, no calf tenderness, Milton's Sign negative Neurologic: alert, responsive, delivery engineer III-XII nml as tested, motor strength/tone normal, sensory intact, speech normal Psychiatric: judgement/insight normal, memory normal, mood/affect normal Skin: normal color, no rash, warm/dry, normal turgor Lymphatic: no adenopathy Medical Decision Making Diagnostic Impression: Primary Impression: Abdominal pain ER Course Patient is obese with limited abdominal examination, but reports pain diffusely , with right scapular pain, suspect possible gallbladder disease, versus obstruction versus complication such as internal hernia from sleep gastrectomy, versus appendicitis versus multiple other etiologies such as pyelonephritis, ureterolithiasis, ovarian pathology. The fluids, IV analgesics, IV antiemetics and reevaluate. Labs, urine, CT all unremarkable, will discharge patient with PMD follow-up. CT/MRI/US Diagnostic Results CT/MRI/US Diagnostic Results : Imaging Test Ordered: ct abd pelvis Impression 1 mild wall thickening throughout the desceding colon related to under distention no adjacent inflammatory changes, 2. otherwise no acute findings and abdomen and pelvis, no obstruction, no off thickening, gallbladder and appendix appear unremarkable, no obstructive uropathy, 4cm left ovarian hypodense cyst, likely physiologic Last Vital Signs Date Time Temp Pulse Resp B/P (MAP) Pulse Ox O2 Delivery O2 Flow Rate FiO2 12/11/18 11:12 98.4 71 18 123/80 99 Room Air Disposition: HOME, SELF-CARE Condition: Stable LIVIA SY M.D Dec 11, 2018 11:36
--- NOTE | 2018-12-11 11:43 | NUR ---
ED Nurse Note: PT TO CT VIA RIKY
[2018-12-11 12:21] LABS: BASOPHILS % (AUTO) 1.4 % (0.0-2.0); EOSINOPHILS % (AUTO) 1.6 % (0.0-3.0); HEMATOCRIT 40.9 % (37.0-47.0); HEMOGLOBIN 13.8 G/DL (12.0-16.0); LYMPHOCYTES % (AUTO) 17.1 % (20.0-45.0); MEAN CORPUSCULAR VOLUME 93 FL (80-99); MONOCYTES % (AUTO) 6.7 % (1.0-10.0); NEUTROPHILS % (AUTO) 73.3 % (45.0-75.0); PLATELET COUNT 244 K/UL (150-450); RED CELL DISTRIBUTION WIDTH 11.5 % (11.6-14.8)
[2018-12-11 12:22] LABS: APPEARANCE,URINE CLEAR; BILIRUBIN, URINE NEGATIVE (NEGATIVE); GLUCOSE, URINE (UA) NEGATIVE (NEGATIVE); KETONES,URINE NEGATIVE (NEGATIVE); LEUKOCYTE ESTERASE ,URINE NEGATIVE (NEGATIVE); NITRITE,URINE NEGATIVE (NEGATIVE); PH,URINE 5 (4.5-8.0); PROTEIN,URINE NEGATIVE (NEGATIVE); UROBILINOGEN,URINE 1 MG/DL (0.0-1.0)
--- NOTE | 2018-12-11 12:23 | Diagnostic Imaging Report ---
EXAM: CT Abdomen and Pelvis Without Intravenous Contrast CLINICAL HISTORY: PAIN TECHNIQUE: Axial computed tomography images of the abdomen and pelvis without intravenous contrast. CTDI is 19.43 mGy and DLP is 1074 mGy-cm. One or more of the following dose reduction techniques were used: automated exposure control, adjustment of the mA and/or kV according to patient size, use of iterative reconstruction technique. COMPARISON: CT of the abdomen and pelvis dated 02/14/18 FINDINGS: Lung bases: Unremarkable. No consolidation. No effusions. ABDOMEN: Liver: Unremarkable. Gallbladder and bile ducts: Unremarkable. No calcified stones. No ductal dilation. Pancreas: Unremarkable. No ductal dilation. Spleen: Unremarkable. No splenomegaly. Adrenals: Unremarkable. No mass. Kidneys and ureters: Unremarkable. No obstructing stones. No hydronephrosis. Stomach and bowel: Mild wall thickening throughout the descending colon is likely related to underdistention. No adjacent inflammatory changes. Postsurgical changes in the stomach. Remainder of the colon appears unremarkable. No abnormally distended loops of small bowel. GE junction appears unremarkable. PELVIS: Appendix: No findings to suggest acute appendicitis. Bladder: Unremarkable. No stones. Reproductive: 2.4 cm left ovarian hypodense cyst, likely physiologic. The uterus and ovaries otherwise have an unremarkable noncontrast appearance. ABDOMEN and PELVIS: Intraperitoneal space: Unremarkable. No free air. No significant fluid collection. Bones/joints: Mild multilevel degenerative changes throughout the visualized spine with disc space loss and endplate osteophytes, most prominent at L5-S1. No acute fracture. No dislocation. Soft tissues: Unremarkable. Vasculature: Minimal atherosclerotic calcifications throughout the abdominal aorta and its proximal branches. No visible aneurysm. Lymph nodes: Unremarkable. No enlarged lymph nodes. IMPRESSION: 1. Mild wall thickening throughout the descending colon is likely related to underdistention. No adjacent inflammatory changes. 2. Otherwise no acute findings in the abdomen or pelvis. No bowel obstruction or bowel wall thickening. Gallbladder and appendix appear unremarkable. No obstructive uropathy. 3. 2.4 cm left ovarian hypodense cyst, likely physiologic.
[2018-12-11 12:26] LABS: COLOR,URINE YELLOW
[2018-12-11 12:40] LABS: ANION GAP 6 mmol/L (5-15); BLOOD UREA NITROGEN 12 mg/dL (7-18); CALCIUM 8.9 MG/DL (8.5-10.1); CARBON DIOXIDE 27 MMOL/L (21-32); CHLORIDE 107 MMOL/L (98-107); CREATININE 0.9 MG/DL (0.55-1.30); POTASSIUM 3.7 MMOL/L (3.5-5.1); SODIUM 140 MMOL/L (136-145)
[2018-12-11 12:45] LABS: ALANINE AMINOTRANSFERASE 10 U/L (12-78); ALBUMIN 3.1 G/DL (3.4-5.0); ALBUMIN/GLOBULIN RATIO 0.8 (1.0-2.7); ALKALINE PHOSPHATASE 66 U/L (46-116); ASPARTATE AMINO TRANSFERASE 11 U/L (15-37); BILIRUBIN,TOTAL 0.2 MG/DL (0.2-1.0)
[2018-12-11] MEDS ORDERED: DICYCLOMINE HCL10 MG PO (13:10)
[2018-12-11] MEDS ORDERED: ZOFRAN4 M1 ORAL (13:11)
[2018-12-11 13:13] VITALS: BP 106/60
[2018-12-11 13:20] VITALS: BP 106/60
--- NOTE | 2018-12-11 13:21 | NUR ---
ED Nurse Note: Pt cleared by health care Provider for discharge. DC instructions/prescription was given and explained to pt and verbalized understanding of teachings. All medical deviecs such as ID band Iv removed. Pt is AAO x4, ambulatory and left with all personal belongings.
== END 2018-12-11 13:21 | disposition home or self-care (01) ==
LOC: EMR 11:43
DX: R10.84 Generalized abdominal pain (principal); K21.9 Gastro-esophageal reflux disease without esophagitis; I10 Essential (primary) hypertension; E11.9 Type 2 diabetes mellitus without complications; J45.909 Unspecified asthma, uncomplicated; N83.202 Unspecified ovarian cyst, left side; Z90.3 Acquired absence of stomach [part of]; Z88.0 Allergy status to penicillin
CPT/HCPCS: 36415; 74176; 80053; 81003; 81025; 83690; 85025; 96361; 96374; 96375; 99284; J2270; J2405

== ENCOUNTER 2019-03-20 08:02 | Emergency (ER) | payer MEDICAID ==
[~2019-03-20] VITALS: Ht 175.3 cm; Wt 116.6 kg
[~2019-03-20 08:02] MED LIST changes: +DICYCLOMINE HCL10 MG PO; +ZOFRAN4 M1 ORAL
--- NOTE | 2019-03-20 08:20 | NUR ---
ED Nurse Note: Patient walked in to ER from home c/o chest pain 04/06 which started by 0400 this morning. patient is aao x4 and ambulatory. skin clean and intact. calm and cooperative. pt is in gown and on type caster.
[2019-03-20 08:46] VITALS: BP 133/85
[2019-03-20 08:50] LABS: BASOPHILS % (AUTO) 1.8 % (0.0-2.0); EOSINOPHILS % (AUTO) 1.7 % (0.0-3.0); HEMOGLOBIN 15.5 G/DL (12.0-16.0); MEAN CORPUSCULAR VOLUME 92 FL (80-99); NEUTROPHILS % (AUTO) 55.6 % (45.0-75.0); PLATELET COUNT 283 K/UL (150-450); RED BLOOD COUNT 4.99 M/UL (4.20-5.40); RED CELL DISTRIBUTION WIDTH 11.4 % (11.6-14.8); WHITE BLOOD COUNT 8.7 K/UL (4.8-10.8)
--- NOTE | 2019-03-20 09:09 | Diagnostic Imaging Report ---
EXAM: XR Chest, 1 View CLINICAL HISTORY: Chest pain TECHNIQUE: Frontal view of the chest. COMPARISON: Chest x-ray dated 07/27/18 FINDINGS: Lungs: Unremarkable. The lungs appear clear. No focal consolidation. Pleural space: Unremarkable. The costophrenic angles are sharp. No visible pneumothorax. Heart: Unremarkable. No cardiomegaly. Mediastinum: Unremarkable. Bones/joints: Unremarkable. Tubes, lines and devices: EKG leads overlie the thorax. IMPRESSION: No acute findings.
[2019-03-20 09:30] LABS: ANION GAP 9 mmol/L (5-15); BLOOD UREA NITROGEN 9 mg/dL (7-18); CARBON DIOXIDE 31 MMOL/L (21-32); CHLORIDE 106 MMOL/L (98-107); POTASSIUM 3.7 MMOL/L (3.5-5.1); SODIUM 145 MMOL/L (136-145)
[2019-03-20 09:43] LABS: ALANINE AMINOTRANSFERASE 14 U/L (12-78); ALBUMIN 3.2 G/DL (3.4-5.0); ALBUMIN/GLOBULIN RATIO 0.8 (1.0-2.7); ALKALINE PHOSPHATASE 52 U/L (46-116); ASPARTATE AMINO TRANSFERASE 16 U/L (15-37); BILIRUBIN,TOTAL 0.3 MG/DL (0.2-1.0); CKMB 0.9 NG/ML (0.0-3.6); CREATINE KINASE 109 U/L (26-308)
[2019-03-20] MEDS ORDERED: ALPRAZOLAM0.25 MG ORAL (10:29)
[2019-03-20 10:38] VITALS: BP 135/74
--- NOTE | 2019-03-20 10:39 | NUR ---
ER DISCHARGE NOTE: Patient is cleared to be discharged per ERMD, pt is aox4, on room air, with stable vital signs. pt was given dc and prescription instructions with exams results, pt was able to verbalize understanding, pt id band and iv site removed without complications. pt is able to ambulate with steady gait. pt took all belongings.
--- NOTE | 2019-03-20 11:02 | Emergency Room Report ---
History of Present Illness General Chief Complaint: Pain Source: Patient Present Illness HPI 43-year-old female presents ED for evaluation. Planing of cramping pain in her right arm since yesterday which then radiated to her right side chest. Denies shortness of breath. Pain is cramping, 5 out of 10, nonradiating. Patient does note history of anxiety but does not take medications. History of depression. History of hypertension. Is compliant with her medications. Denies smoking or drug use. No other aggravating or relieving factors. Denies any other associated symptoms Allergies: Coded Allergies: PENICILLINS (Verified Allergy, Unknown, 07/07/18) Patient History Past Medical History: DM, HTN, seizures, psych hx Past Surgical History: none Pertinent Family History: none Social History: Denies: smoking, alcohol use, drug use Last Menstrual Period: 03/12/19 Now: No : 1 Para: 0 Immunizations: UTD Reviewed Nursing Documentation: PMH: Agreed; PSxH: Agreed Nursing Documentation-PMH Past Medical History: No History, Except For Hx Cardiac Problems: Yes - "Mild TX" in 09/2018 Hx Hypertension: Yes Hx Asthma: Yes Hx Diabetes: Yes Hx Cancer: No Hx Gastrointestinal Problems: Yes - GERD Hx Seizures: Yes - 2018 Review of Systems All Other Systems: negative except mentioned in HPI Physical Exam Vital Signs Date Time Temp Pulse Resp B/P (MAP) Pulse Ox O2 Delivery O2 Flow Rate FiO2 03/20/19 08:08 98.4 60 22 136/94 (108) 97 Room Air Sp02 EP Interpretation: reviewed, normal General Appearance: no apparent distress, alert, GCS 15, non-toxic, obese Head: normocephalic, atraumatic Eyes: bilateral eye normal inspection, bilateral eye PERRL ENT: hearing grossly normal, normal pharynx, no angioedema, normal voice Neck: full range of motion, supple/symm/no masses Respiratory: chest non-tender, lungs clear, normal breath sounds, speaking full sentences Cardiovascular #1: regular rate, rhythm, no edema Cardiovascular #2: 2+ carotid (R), 2+ carotid (L), 2+ radial (R), 2+ radial (L) , 2+ dorsalis pedis (R), 2+ dorsalis pedis (L) Gastrointestinal: normal bowel sounds, non tender, soft, non-distended, no guarding, no rebound Rectal: deferred Genitourinary: normal inspection, no CVA tenderness Musculoskeletal: back normal, gait/station normal, normal range of motion, non- tender Neurologic: alert, oriented x3, responsive, motor strength/tone normal, sensory intact, speech normal Psychiatric: judgement/insight normal, memory normal, mood/affect normal, no suicidal/homicidal ideation Reflexes: 3+ bicep (R), 3+ bicep (L), 3+ tricep (R), 3+ tricep (L), 3+ knee (R) , 3+ knee (L) Skin: normal color, no rash, warm/dry, well hydrated Lymphatic: no adenopathy Medical Decision Making Diagnostic Impression: Primary Impression: Anxiety Additional Impression: Chest pain Qualified Codes: R07.9 - Chest pain, unspecified ER Course Hospital Course 43-year-old female presents with cramping arm pain, right-sided chest pain. Differential diagnoses include: Rib fracture, TX/unstable angina, contusion, muscle strain Clinical course Patient placed on stretcher. After initial history and physical I ordered labs , EKG, chest x-ray. labs reviewed- all electrolytes normal, troponins negative, no leukocytosis, hemoglobin/hematocrit stable Chest x-ray-no cardiomegaly, no rib fracture, no pneumothorax, no acute process EKG- sinus meliton, no acute ischemic changes interpreted by me Discussed findings with patient. I believe there is an anxiety component contributing to patient's symptoms she does have a psychiatric history. Patient does have a cardiac history. Patient has been here previously for similar presentation multiple times. Has had cardiac work-ups all of which have been negative. Doing those visits the physician did have concern for anxiety as well. Discharged on low-dose Xanax short course. Safe for discharge with close outpatient follow-up. States she has a PMD I. I feel this is a highly complex case requiring extensive working including EKG/Rhythm strip, Xray/CT/US, Blood/urine lab work, repeat exams while in ED, and administration of strong opiates/narcotics for pain control, admission to hospital or close patient follow up. Diagnosis - anxiety, chest pain Stable and discharged to home with Rx Xanax. Instructed to followup with PMD. Return to ED if symptoms recur or worsen Labs Test 03/20/19 08:35 03/20/19 09:00 White Blood Count 8.7 K/UL (4.8-10.8) Red Blood Count 4.99 M/UL (4.20-5.40) Hemoglobin 15.5 G/DL (12.0-16.0) Hematocrit 46.0 % (37.0-47.0) Mean Corpuscular Volume 92 FL (80-99) Mean Corpuscular Hemoglobin 31.0 PG (27.0-31.0) Mean Corpuscular Hemoglobin Concent 33.7 G/DL (32.0-36.0) Red Cell Distribution Width 11.4 % (11.6-14.8) Platelet Count 283 K/UL (150-450) Mean Platelet Volume 9.3 FL (6.5-10.1) Neutrophils (%) (Auto) 55.6 % (45.0-75.0) Lymphocytes (%) (Auto) 34.0 % (20.0-45.0) Monocytes (%) (Auto) 7.0 % (1.0-10.0) Eosinophils (%) (Auto) 1.7 % (0.0-3.0) Basophils (%) (Auto) 1.8 % (0.0-2.0) Sodium Level 145 MMOL/L (136-145) Potassium Level 3.7 MMOL/L (3.5-5.1) Chloride Level 106 MMOL/L (98-107) Carbon Dioxide Level 31 MMOL/L (21-32) Anion Gap 9 mmol/L (5-15) Blood Urea Nitrogen 9 mg/dL (7-18) Creatinine 1.0 MG/DL (0.55-1.30) Estimat Glomerular Filtration Rate > 60 mL/min (>60) Glucose Level 92 MG/DL (74-106) Calcium Level 9.0 MG/DL (8.5-10.1) Total Bilirubin 0.3 MG/DL (0.2-1.0) Aspartate Amino Transf (AST/SGOT) 16 U/L (15-37) Alanine Aminotransferase (ALT/SGPT) 14 U/L (12-78) Alkaline Phosphatase 52 U/L (46-116) Total Creatine Kinase 109 U/L (26-308) Creatine Kinase MB 0.9 NG/ML (0.0-3.6) Creatine Kinase MB Relative Index 0.8 Troponin I 0.000 ng/mL (0.000-0.056) Total Protein 7.0 G/DL (6.4-8.2) Albumin 3.2 G/DL (3.4-5.0) Globulin 3.8 g/dL Albumin/Globulin Ratio 0.8 (1.0-2.7) EKG Diagnostic Results Rate: bradycardiac Rhythm: NSR ST Segments: no acute changes ASA given to the pt in ED: No Rhythm Strip Diag. Results EP Interpretation: yes Rhythm: NSR, no PVC's, no ectopy Chest X-Ray Diagnostic Results Chest X-Ray Diagnostic Results : Chest X-Ray Ordered: Yes # of Views/Limited/Complete: 1 View Indication: Chest Pain EP Interpretation: Yes Interpretation: no consolidation, no effusion, no pneumothorax, no acute cardiopulmonary disease Impression: No acute disease Electronically Signed by: Electronically signed by Jalil Zaldivar MD Last Vital Signs Date Time Temp Pulse Resp B/P (MAP) Pulse Ox O2 Delivery O2 Flow Rate FiO2 03/20/19 10:38 98.2 86 17 135/74 98 Room Air Status: improved Disposition: HOME, SELF-CARE Condition: Stable Scripts Alprazolam* (XANAX*) 0.25 Mg Tablet 0.25 MG ORAL TID PRN for For Anxiety, #10 TAB Prov: Jalil Zaldivar MD 03/20/19 Referrals: NON PHYSICIAN (PCP) [facility] + [facility] - Peds ER - Patient Instructions: Panic Attacks, [id number], Nonspecific Chest Pain, Easy -to-Read Jalil Zaldivar MD Mar 20, 2019 11:02
== END 2019-03-20 10:39 | disposition home or self-care (01) ==
LOC: EMR 08:48
DX: F41.9 Anxiety disorder, unspecified (principal); R07.9 Chest pain, unspecified; E66.9 Obesity, unspecified; Z88.0 Allergy status to penicillin; I25.2 Old myocardial infarction; I10 Essential (primary) hypertension; K21.9 Gastro-esophageal reflux disease without esophagitis; E11.9 Type 2 diabetes mellitus without complications; G40.909 Epilepsy, unspecified, not intractable, without status epilepticus; F32.9 Major depressive disorder, single episode, unspecified; R00.1 Bradycardia, unspecified
CPT/HCPCS: 36415; 71045; 80053; 82550; 82553; 84484; 85025; 93005; 99283